=== PATIENT | female | born 1960 | race Caucasian/White ===

== ENCOUNTER 2018-08-30 09:43 | Day surgery (SDC) | payer BC ==
[~2018-08-30 09:43] MED LIST: LIDOCAINE HCL 1% MPF 30 SOL ONE; PROPOFOL 500 MG/50 ML EMU IV ONE
[2018-08-30 11:32] VITALS: BP 132/80; PULSE 51; RESP 18; TEMP 97.4; O2SAT 99
== END 2018-08-30 11:40 | disposition home or self-care (01) ==
LOC: SURG 09:43
PROVIDERS: ATTEND Surgery
DX: Z12.11 Encounter for screening for malignant neoplasm of colon (principal); Z86.010 Personal history of colon polyps
CPT/HCPCS: J2001; J2704